=== PATIENT | male | born 1975 | race Caucasian/White ===

== ENCOUNTER 2017-09-05 05:18 | Emergency (ER) | payer OTHER ==
[~2017-09-05] VITALS: Ht 182.9 cm; Wt 97.5 kg
[2017-09-05] MEDS ORDERED: TOPROL XL25 M1 (05:25)
== END 2017-09-05 16:03 | disposition home or self-care (01) ==
LOC: ER 05:18
DX: K52.89 Other specified noninfective gastroenteritis and colitis (principal)

== ENCOUNTER 2017-09-08 17:01 | Emergency (ER) | payer OTHER ==
[~2017-09-08] VITALS: Ht 182.9 cm; Wt 94.3 kg
[~2017-09-08 17:01] MED LIST: TOPROL XL25 M1
[2017-09-08] MEDS ORDERED: BISOPROLOL-HCT1 EACH (17:13)
== END 2017-09-08 18:49 | disposition home or self-care (01) ==
LOC: ER 17:01
DX: R53.81 Other malaise (principal); T36.8X1A Poisoning by other systemic antibiotics, accidental (unintentional), initial encounter; Y92.89 Other specified places as the place of occurrence of the external cause